=== PATIENT | male | born 1990 | race Two or more races ===

== ENCOUNTER 2024-09-11 17:40 | Emergency (ER) | payer MEDICAID ==
[~2024-09-11] VITALS: Ht 170.2 cm; Wt 86.8 kg
[~2024-09-11 17:40] MED LIST: IBUP-1455 PO; PROM1SOL4 PO; TAMIFLU PO
--- NOTE | 2024-09-11 18:34 | DVH ---
EXAM: CT HEAD WITHOUT CONTRAST INDICATION: HEADACHE TECHNIQUE: CT of the head without intravenous contrast. Radiation Dose Information: CT Dose: CTDI volume is 56.2 mGy. Dose-length product is 1013.26 mGy*cm The dose indicators for CT are the volume Computed Tomography (CT) Dose Index (CTDIvol) and the Dose Length Product (DLP), and are measured in units of mGy and mGy-cm, respectively. These indicators are not patient dose, but values generated from the CT scanner acquisition factors. The report includes radiation exposure data for exposures received during this examination. COMPARISON: None FINDINGS: There is no evidence of acute intracranial hemorrhage, extra-axial collection, mass effect, midline s hift, herniation or hydrocephalus. The ventricles, sulci and cisterns are age appropriate. The ho-white differentiation is intact. Patchy periventricular and subcortical white matter hypoattenuation is nonspecific but may be related to small vessel ischemic disease. Partially opacified left maxillary sinus and mastoid air cells are clear. The surrounding soft tissues and osseous structures are unremarkable. IMPRESSION: 1. No acute intracranial abnormality.
--- NOTE | 2024-09-11 20:06 | ED.PDOC ---
HPI (NEURO) HPI Comments PT REPORTS BRITTON X 1 WEEK, DENIES ANY INJURY OR TRAUMA. PT DENIES N/V, DIZZINES, BLURRED VISION. PT NOTES PAIN TO RIGHT SIDE OF FACE DENIES WORST HEADACHE OF HIS LIFE, FEVER, CHILLS, NUCHAL RIGIDITY, WEAKNESS, NUMBNESS, OR SLURRED SPEECH. Chief Complaint: Headache Time Seen by MD: 18:16 Primary Care Provider: NONE Reviewed Notes: Nurses Notes, Medications, Allergies Information Source: Patient Mode of Arrival: Ambulatory Past Medical History PAST MEDICAL HISTORY: Asthma, Denies Surgical History: Denies all surgeries Family History Family History: Unknown Social History Smoker: Non-Smoker Alcohol: Denies ETOH Use Drugs: Denies Drug Use Constitutional: denies: chills, diaphoresis, fatigue, fever, malaise, sweats, weakness, others EENTM: denies: blurred vision, double vision, ear bleeding, ear discharge, ear drainage, ear pain, ear ringing, eye pain, eye redness, hearing loss, mouth pain, mouth swelling, nasal discharge, nose bleeding, nose congestion, nose pain, photophobia, tearing, throat pain, throat swelling, voice changes, others Respiratory: denies: cough, hemoptysis, orthopnea, SOB at rest, shortness of breath, SOB with excertion, stridor, wheezing, others Cardiovascular: denies: chest pain, dizzy spells, diaphoresis, Dyspnea on exertion, edema, irregular heart beat, left arm pain, lightheadedness, palpitations, PND, syncope, others Gastrointestinal: denies: abdomen distended, abdominal pain, blood streaked bowels, constipated, diarrhea, dysphagia, difficulty swallowing, hematemesis, melena, nausea, poor appetite, poor fluid intake, rectal bleeding, rectal pain, vomiting, others Genitourinary: denies: burning, dysuria, flank pain, frequency, hematuria, incontinence, penile discharge, penile sore, pain, testicle pain, testicle swelling, urgency, others Neurological: reports: dizziness, headache, paresthesia; denies: fainting, left sided numbness, left sided weakness, numbness, pre-existing deficit, right sided numbness, right sided weakness, seizure, speech problems, tingling, tremors, weakness, others Musculoskeletal: denies: back pain, gout, joint pain, joint swelling, muscle pain, muscle stiffness, neck pain, others Integumetry: denies: bruises, change in color, change in hair/nails, dryness, laceration, lesions, lumps, rash, wounds, others Allergic/Immunocompromised: denies: Difficulty Healing, Frequent Infections, Hives, Itching, others Hematologic/Lymphatic: denies: anemia, blood clots, easy bleeding, easy bruising, swollen glands, others Endocrine: denies: excessive hunger, excessive sweating, excessive thirst, excessive urination, flushing, intolerance to cold, intolerance to heat, unexplained weight gain, unexplained weight loss, others Psychiatric: denies: anxiety, bipolar disorder, depression, hopeless, panic disorder, schizophrenia, sleepless, suicidal, others Physical Exam General Appearance: No Apparent Distress, Normal HEENT: Normal ENT Inspection, Pharynx Normal, TMs Normal Neck: Full Range of Motion, Non-Tender Respiratory: Lungs Clear, No Respiratory Distress, Normal Breath Sounds Cardiovascular: No Edema, No JVD, No Murmur, No Gallop, Normal Peripheral Pulses, Regular Rate/Rhythm Breast Exam: Deferred Gastrointestinal: No Organomegaly, Non Tender, No Pulsatile Mass, Normal Bowel Sounds, Soft Genitalia: Deferred Pelvic: Deferred Rectal: Deferred Extremities: Normal capillary refill, Normal inspection, Normal range of motion, Non-tender, No pedal edema Musculoskeletal : Apperance: Normal Neurologic: Alert, 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 Was a procedure done?: No Differential Diagnosis (SZ) Headache: Cluster, Migraine, Epidural Hemorrhage, Intracerebral Hemorrhage, Subarachnoid Hemorrhage, Subdural Hemorrhage, Mass Lesion, Meningitis, Post- Traumatic, Sinusitis X-Ray, Labs, Meds, VS Vital Signs Date Time Temp Pulse Resp B/P (MAP) Pulse Ox O2 Delivery O2 Flow Rate FiO2 09/11/24 20:20 60 18 96 Room Air 09/11/24 20:20 98.6 60 18 110/77 (88) 96 98.6 09/11/24 18:03 98.5 63 16 126/78 (94) 97 98.5 Current Medications Medications (Trade) Dose Ordered Sig/William Route Start Time Stop Time Status Last Admin Ketorolac Tromethamine (Toradol Injection) 60 mg ONCE ONCE IM 09/11/24 20:15 09/11/24 20:16 DC 09/11/24 20:45 Dexamethasone Sodium Phosphate (Decadron Injection) 10 mg ONCE ONCE IM 09/11/24 20:15 09/11/24 20:16 DC 09/11/24 20:44 Acetaminophen (Tylenol Tablet Or Capsule) 500 mg ONCE ONCE PO 09/11/24 20:15 09/11/24 20:16 DC 09/11/24 20:44 X-Ray, Labs, Meds, VS Comment Patient given Toradol 60 mg IM Decadron 10 mg IM and Tylenol 500 mg p.o.. Reports improvement in pain and function requesting discharge at this time. Script trial of sumatriptan. Advised to take medication as prescribed side effects discussed. Discussed ER return precautions patient indicates u nderstanding agrees with discharge plan of care. He is to rest increase p.o. fluids with electrolytes follow up with your primary care in 2 days Time of 1ST Reevaluation: 18:40 Reevaluation 1ST: Unchanged Time of 2ND Reevaluation: 21:34 Reevaluation 2ND: Improved Patient Education/Counseling: Diagnosis, Treatment, Prognosis, Need For Follow Up Family Education/Counseling: No Family Present Departure 1 Departure Time of Disposition: 21:34 Impression: Primary Impression: Headache Qualified Codes: R51.9 - Headache, unspecified Disposition: 01 HOME / SELF CARE / HOMELESS Condition: Stable e-Prescriptions Sumatriptan Succinate (Sumatriptan Succinate) 25 Mg Tab 25 MG PO ONCE PRN for 3 Days, #6 TAB Take 1 tablet by mouth at onset of headache. May repeat 1 tablet 2 hours after if migraine persists. Prov: ASH HOWARD 09/11/24 Discharged With: Self Critical Care Note Critical Care Time?: No Stability Stability form required: No ASH HOWARD September 11, 2024 20:06
[2024-09-11 20:20] VITALS: BP 110/77; PULSE 60; RESP 18; TEMP 98.6; O2SAT 96
[2024-09-11] MEDS: DexAMETHasone SOD PHOS 10MG/1ML VIAL INJ IM ONE (20:44)
[2024-09-11] MEDS: ACETAMINOPHEN 500 MG TAB or CAP PO ONE (20:44)
[2024-09-11] MEDS: KETOROLAC TROMETH 60MG/2ML VIAL IM ONE (20:45)
[2024-09-11] MEDS ORDERED: SUMA25TA2 PO (21:36)
== END 2024-09-11 21:46 | disposition home or self-care (01) ==
LOC: ER 17:44
DX: R51.9 Headache, unspecified (principal); R42 Dizziness and giddiness; R20.2 Paresthesia of skin; J45.909 Unspecified asthma, uncomplicated
CPT/HCPCS: 70450; 96372; 99285; J1100; J1885